=== PATIENT | female | born 1995 | race Caucasian/White ===

== ENCOUNTER 2016-11-14 17:32 | Emergency (ER) | payer OTHER ==
[~2016-11-14 17:32] MED LIST: AMOXIL250 MG/5 M PO; CEPHALEXIN500 M1 PO; HYDROCODONE BIT1 T11 PO; MOTRIN600 MG PO; PYRIDIUM200 M1 PO; TYLENOL W/CODE480 ML PO
[2016-11-14] MEDS ORDERED: Motrin,Rufen800 MG PO (17:45)
== END 2016-11-14 17:58 | disposition home or self-care (01) ==
LOC: ED 17:32
DX: L55.9 Sunburn, unspecified (principal)

== ENCOUNTER 2017-03-19 21:21 | Emergency (ER) | payer OTHER ==
[~2017-03-19] VITALS: Ht 165.1 cm; Wt 68.0 kg
[~2017-03-19 21:21] MED LIST changes: +Motrin,Rufen800 MG PO
[2017-03-19] MEDS ORDERED: PENICILLIN VK500 MG PO (21:46)
[2017-03-19] MEDS ORDERED: MOBIC7.5 MG PO (21:46)
== END 2017-03-19 22:49 | disposition home or self-care (01) ==
LOC: ED 21:21
DX: K04.7 Periapical abscess without sinus (principal)

== ENCOUNTER 2017-03-24 06:42 | Inpatient (IN) | payer OTHER ==
[2017-03-24] VITALS (14 sets, daily range): BP systolic 122–150; BP diastolic 54–79
[~2017-03-24] VITALS: Ht 170.1 cm; Wt 63.6 kg
--- NOTE | ~2017-03-24 | O ---
[place], [place] OPERATIVE NOTE [id number] UN[facility] #: [id number] ROOM: [facility] DOCTOR: TREVOR IVERSON MD BIRTHDATE: [birth year] DOS: 03/24/2017 PREOPERATIVE DIAGNOSIS: Acute appendicitis. POSTOPERATIVE DIAGNOSIS: Acute appendicitis. PROCEDURE: Laparoscopic appendectomy. SURGEON: Trevor Iverson MD UTILITY REPAIRER: MS3. ANESTHESIA: General with endotracheal intubation. INDICATIONS: This is a 21-year-old lady who comes in with upper abdominal pain in the right lower quadrant and was diagnosed as having acute appendicitis on a CAT scan. It was decided to take the patient to the operating room for appendectomy. The procedure and its complications were explained to the patient in detail preoperatively. Complications that were discussed included. but were not limited to bleeding, infection, hematoma/seroma/abscess formation, prolonged postoperative pain, incisional hernia formation and damage to underlying vital structures. She agreed to proceed. DESCRIPTION OF PROCEDURE: After identifying the patient, the patient was brought to the operating suite and laid in the supine position. After induction of general anesthesia, the parts were then painted and draped in the usual sterile fashion and the left upper extremity was stuck to the patient's side. Incision was made below the umbilicus in a transverse fashion. The skin and the subcutaneous tissue were incised in the line of the incision. The fascia was incised as well vertically and 2 stay sutures with 0 Vicryl were taken on either side. The peritoneum was opened and a 10 mm Rene port was introduced into the peritoneal cavity under direct vision. A left lower quadrant incision of 10 mm was made. A suprapubic incision was made after making absolutely sure that the bladder was decompressed and this was for 5 mm and appropriate size ports were introduced. The patient was placed in a Trendelenburg, right side up position. The cecum and the appendix were identified. The appendix was found to be inflamed. It was held up with the help of an Endo Jennifer forceps and the base of the appendix as well as the mesoappendix were stapled across with the help of an Endo-AASHISH vascular stapler. The appendix was then placed in an EndoCatch bag and removed from the peritoneal cavity and sent for histopathological diagnosis. Thereafter, hemostasis was confirmed in the area of the mesoappendix and suction was used now to suck away the spilled blood. After hemostasis was confirmed again, the suprapubic and the left lower quadrant ports were removed and there was no bleeding seen. The umbilical port was also removed and the pneumoperitoneum was decompressed. Thereafter, the 2 stay sutures were tied together and an additional 0 Vicryl stitch was taken in order to close the fascial defect. Local anesthesia was infiltrated in all the 3 skin incisions (1% plain lidocaine) and the edges of the skin were then approximated with the help of 4-0 Vicryl in a subcuticular running fashion. Dressing was placed. The patient tolerated the procedure well and was taken to the recovery room in a [place], [place] OPERATIVE NOTE NAME: STACI ROSA UNIT #: [id number] ROOM: [facility] DOCTOR: TREVOR IVERSON MD BIRTHDATE: [birth year] stable fashion. There were no complications. Dr. Trevor Iverson, the attending surgeon was present throughout the operating case. Trevor Iverson MD CM:OPRECORD:OPERATIVE NOTE [id number] TREVOR IVERSON MD 03/24/17 1435 interface
[~2017-03-24 06:42] MED LIST changes: +MOBIC7.5 MG PO; +PENICILLIN VK500 MG PO
[2017-03-24 07:37] LABS: BASO % 0.1 % (0.0-1.0); EOS % 0.1 % (1.0-4.0); HEMATOCRIT 35.9 % (37.0-47.0); HEMOGLOBIN 11.4 g/dl (12.0-16.0); LYMPH # 1.3 10*3/uL (1.3-4.4); LYMPH % 8.2 % (27.0-41.0); MEAN CELL VOLUME 81.6 fl (81.0-99.0); MEAN CORPUSCULAR HGB 25.9 pg (27.0-31.0); MEAN CORPUSCULAR HGB CONC 31.8 g/dl (33.0-37.0); MEAN PLATELET VOLUME 9.3 fl (9.6-12.3); MONO # 0.8 10*3/uL (0.1-1.0); MONO % 4.9 % (3.0-9.0); NEUT # 13.5 10*3/uL (2.3-7.9); NEUT % 86.3 % (47.0-73.0); PLATELET COUNT AUTOMATED 477 10*3/uL (130-400); RED CELL DISTRI WIDTH 13.4 % (0-14.5); WHITE BLOOD COUNT 15.7 10*3/uL (4.8-10.8)
[2017-03-24 07:46] LABS: BILIRUBIN NEGATIVE (NEGATIVE); BLOOD 2+ (NEGATIVE); CLARITY CLEAR (CLEAR); COLOR YELLOW (YELLOW); GLUCOSE NEGATIVE (NEGATIVE); KETONE 1+ (NEGATIVE); LEUKO ESTERASE NEGATIVE (NEGATIVE); NITRITE NEGATIVE (NEGATIVE); PH 6.5 (5.0-9.0); SPECIFIC GRAVITY 1.015 (1.005-1.030)
[2017-03-24 07:53] LABS: ALKALINE PHOSPHATASE 83 U/L (45-117); BUN 6 mg/dl (7-24); CHLORIDE 107 mmol/L (98-107); CREATININE 0.67 mg/dL (0.55-1.02); LIPASE 66 U/L (73-393); POTASSIUM 3.7 mmol/L (3.5-5.1); SGOT/AST 14 IU/L (3-35); SGPT/ALT 22 U/L (12-78); SODIUM 139 mmol/L (136-145); TOTAL PROTEIN 8.1 gm/dL (6.4-8.2)
--- NOTE | 2017-03-24 08:23 | NUR ---
PT STATES TORADOL INEFFECTIVE. PAIN RATED AT 5/10.
--- NOTE | 2017-03-24 09:42 | NUR ---
PRE-OP QUESTIONNARE FILLED OUT AND SIGNED.
--- NOTE | 2017-03-24 10:03 | NUR ---
REPORT GIVEN TO ALLIE ON 5TH FLOOR.
[2017-03-24] MEDS ORDERED: MELOXICAM7.5 MG PO (14:21)
--- NOTE | 2017-03-24 14:33 | NUR ---
[facility] , under the services of RCIS Harrell DO with a diagnosis of APPENDECTOMY. Chief complaint is ABDM. PAIN. Patient arrived via bed from ER. Monitor applied. Initial assessment completed. Vital signs taken and recorded. CRIS HARRELL DO notified of admission to the unit. Orders received. See assessment for past medical history, medications and allergies. Patient and/or family oriented to unit. [facility]. Clothing/patient valuable form completed. ALLIE SAMAYOA
--- NOTE | 2017-03-24 16:46 | NUR ---
MORPHINE GIOVEN FOR C/O ADBM. PAIN. RATES 8/10 ON PAIN SCALE. WILL MONITOR.
--- NOTE | 2017-03-24 17:50 | NUR ---
MORPHINE EFFECTIVE PER PT.
--- NOTE | 2017-03-24 19:53 | NUR ---
REQUESTED AND RECEIVED MORPHINE IV PER PRN ORDER FOR COMPLAINTS OF ABD PAIN RATING A 10. CALL LIGHT WITHIN REACH. WILL MONITOR FOR EFFECTIVENESS
--- NOTE | 2017-03-24 21:00 | NUR ---
RESTING IN BED VISITING WITH BOYFRIEND, STATES RELIEF FROM EARLIER PAIN MEDS. RESPIRATIONS EASY. LUNGS CLEAR. PULSE OX 99% RA. 3 SURGICAL SITES NOTED TO ABD, INTACT AND WELL APPROXIMATED. IV FLUIDS INFUSING PER ORDER. CALL LIGHT WITHIN REACH. NO FURTHER VOICED COMPLAINTS
--- NOTE | 2017-03-24 23:30 | NUR ---
REMAINS AWAKE, WATCHING TV. MILKSHAKE AND FOOD NOTED AT BEDSIDE, PATIENT TOLERATING DIET. IV FLUIDS MAINTAINED. CALL LIGHT WITHIN REACH
[2017-03-25] VITALS: BP 123/55
--- NOTE | 2017-03-25 00:34 | NUR ---
REQUESTING "SOMETHING FOR PAIN." OFFERED BENY AND EXPLAINED TO PATIENT THAT SHE WOULD BE DISCHARGED WITH ORAL PAIN MEDS. PATIENT DECLINED, REQUESTING "MY SHOT." MEDICATED WITH MORPHINE IV PER PRN ORDER FOR C/O ABD PAIN RATING A 6. CALL LIGHT WITHIN REACH. WILL MONITOR FOR EFFECTIVENESS
--- NOTE | 2017-03-25 02:00 | NUR ---
EARLIER MEDS APPEAR EFFECTIVE. SLEEPING. RESPIRATIONS EASY. IV FLUIDS MAINTAINED. CALL LIGHT WITHIN REACH
--- NOTE | 2017-03-25 05:54 | NUR ---
REQUESTED AND RECEIVED MORPHINE IV PER PRN ORDER FOR COMPLAINTS OF ABD PAIN RATING A 9. ENCOURAGED PATIENT TO TAKE PO PAIN MEDS, DECLINED. CLAIMS TO PASSING "A LITTLE GAS." IV FLUIDS MAINTAINED. WILL MONITOR FOR EFFECTIVENESS
--- NOTE | 2017-03-25 06:30 | NUR ---
RESTING IN BED. STATES RELIEF FROM EARLIER MEDS. IV FLUDIS MAINTAINED. CALL LIGHT WITHIN REACH
[2017-03-25 06:50] LABS: BASO % 0.2 % (0.0-1.0); EOS % 0.1 % (1.0-4.0); HEMATOCRIT 32.5 % (37.0-47.0); HEMOGLOBIN 10.2 g/dl (12.0-16.0); LYMPH # 1.3 10*3/uL (1.3-4.4); LYMPH % 12.1 % (27.0-41.0); MEAN CELL VOLUME 83.5 fl (81.0-99.0); MEAN CORPUSCULAR HGB 26.2 pg (27.0-31.0); MEAN CORPUSCULAR HGB CONC 31.4 g/dl (33.0-37.0); MEAN PLATELET VOLUME 9.7 fl (9.6-12.3); MONO # 0.9 10*3/uL (0.1-1.0); MONO % 7.9 % (3.0-9.0); NEUT # 8.7 10*3/uL (2.3-7.9); NEUT % 79.2 % (47.0-73.0); PLATELET COUNT AUTOMATED 438 10*3/uL (130-400); RED BLOOD COUNT 3.89 10*6/uL (4.10-5.10); RED CELL DISTRI WIDTH 13.8 % (0-14.5)
[2017-03-25 07:02] LABS: ALBUMIN 3.1 gm/dl (3.1-4.5); ALKALINE PHOSPHATASE 69 U/L (45-117); BUN 9 mg/dl (7-24); CHLORIDE 109 mmol/L (98-107); CHOLESTEROL 102 mg/dL (<200); CREATININE 0.65 mg/dL (0.55-1.02); HDL CHOLESTEROL 49 mg/dl (40-60); LDL CHOLESTEROL 43 mg/dL (9-159); PHOSPHOROUS 3.4 mg/dL (2.5-4.9); POTASSIUM 3.7 mmol/L (3.5-5.1); SGOT/AST 7 IU/L (3-35); SGPT/ALT 18 U/L (12-78); SODIUM 140 mmol/L (136-145); TOTAL PROTEIN 6.7 gm/dL (6.4-8.2); TRIGLYCERIDES 51 mg/dl (<150); VLDL CHOLESTEROL 10 mg/dL (6-40)
[2017-03-25 07:08] LABS: FREE T4 1.22 ng/dl (0.76-1.46); THYROID STIM HORMONE (HS) 0.585 uIU/ml (0.358-4.75); VITAMIN D, 25-HYDROXY 26.9 ng/mL (30-100)
[2017-03-25 07:09] LABS: ACT PARTIAL THROMBO TIME 25.1 SECONDS (20.8-31.5)
--- NOTE | 2017-03-25 07:45 | NUR ---
Shift chart check completed.
[2017-03-25 08:00] VITALS: BP 121/55
--- NOTE | 2017-03-25 08:00 | NUR ---
[employer]er [employer] in to talk to patient. Patient states lives at HOME with HER BOYFRIEND. There are 0 steps in the home. Physician: [facility] Pharmacy: [facility] Home health services: NONE Patient's level of ADLs: INDEPENDENT Patient has working utilities: YES DME: NONE Follow-up physician's appointment after d/c: WILL BE MADE PRIOR TO DC Does patient want to access PORTAL?: Discharge plan HOME. JAX HOUSER
--- NOTE | 2017-03-25 09:32 | NUR ---
PATIENT MEDICATED WITH PO NORCO FOR PAIN 6/10 IN HER ABDOMEN
--- NOTE | 2017-03-25 10:30 | NUR ---
PATIENT STATES MEDICATION EFFECTIVE
--- NOTE | 2017-03-25 10:32 | NUR ---
PATIENT REFUSED TEDS
[2017-03-25 12:00] VITALS: BP 121/64
--- NOTE | 2017-03-25 14:54 | NUR ---
PATIENT MEDICATED WITH PO NORCO FOR PAIN 5/10 IN HER ABDOMEN
[2017-03-25] MEDS ORDERED: FLAGYL500 MG PO (15:02)
[2017-03-25] MEDS ORDERED: NORCO 5-325 TA1 EACH PO (15:02)
[2017-03-25] MEDS ORDERED: CIPRO500 MG PO (15:02)
--- NOTE | 2017-03-25 15:40 | NUR ---
PATIENT STATES MEDICATION EFFECTIVE
--- NOTE | 2017-03-25 15:48 | NUR ---
WENT OVER D/C INSTURCTIONS WITH PATIENT. REMOVED IV WITH BLEEDING CONTROLLED AND CATHETER INTACT. PATIENT GIVEN SCRIPT FOR NORCO. PATIENT VERBALIZED UNDERSTANDING THAT SCRIPTS SENT TO PHARMACY. PATIENT TAKEN TO EXIT VIA WHEELCHAIR. PATIENT IS D/C HOME.
== END 2017-03-25 15:48 | disposition home or self-care (01) | DRG 854 ==
LOC: ED 06:42 → EDHOLD 08:45 → 5E 08:45
PROVIDERS: Emergency Medicine; Hospitalist; ADMIT Internal Medicine
PROC: 0DTJ4ZZ Resection of Appendix, Percutaneous Endoscopic Approach (ICD-10-PCS; principal; 2017-03-24)
DX: A41.9 Sepsis, unspecified organism (principal); K35.80 Unspecified acute appendicitis; E44.0 Moderate protein-calorie malnutrition; R73.9 Hyperglycemia, unspecified; D64.9 Anemia, unspecified; D47.3 Essential (hemorrhagic) thrombocythemia; Z87.81 Personal history of (healed) traumatic fracture; Z87.440 Personal history of urinary (tract) infections; Z82.49 Family history of ischemic heart disease and other diseases of the circulatory system; Z79.899 Other long term (current) drug therapy; Z83.49 Family history of other endocrine, nutritional and metabolic diseases

== ENCOUNTER 2018-11-25 21:35 | Emergency (ER) | payer OTHER ==
[~2018-11-25] VITALS: Ht 170.1 cm; Wt 63.5 kg
[~2018-11-25 21:35] MED LIST changes: +CIPRO500 MG PO; +DIFLUCAN150 MG PO; +FLAGYL500 MG PO; +LEVOFLOXACIN250 M2 PO; +MELOXICAM7.5 MG PO; +NORCO 5-325 TA1 EACH PO
[2018-11-25] MEDS ORDERED: PREDNISONE10 MG PO (22:16)
[2018-11-25] MEDS ORDERED: ATARAX,VISTARIL50 MG PO (22:16)
== END 2018-11-25 22:35 | disposition home or self-care (01) ==
LOC: ED 21:35
DX: L50.9 Urticaria, unspecified (principal)